=== PATIENT | female | born 2000 | race Hispanic/Latino ===

== ENCOUNTER 2023-04-01 06:18 | Day surgery (SDC) | payer OTHER ==
[2023-03-30 10:57] VITALS: BP 126/66; PULSE 71; RESP 18
[2023-04-01] VITALS (17 sets, daily range): BP systolic 12–139; BP diastolic 55–89; PULSE 62–101; RESP 14–19
[~2023-04-01] VITALS: Ht 165.1 cm; Wt 97.9 kg
[~2023-04-01 06:18] MED LIST: CAFF200T4 PO; MEDERMA TP
[2023-04-01] MEDS ORDERED: LACTATED RINGERS 1000ML 1,000 ML IV ONE (06:44)
[2023-04-01] MEDS ORDERED: DEXAMETHASONE SOD PHOSPHATE 10MG/ML 1ML VIAL ONE (07:09)
[2023-04-01] MEDS ORDERED: NEOSTIGMINE 5MG/5ML SYR IV ONE (07:09)
[2023-04-01] MEDS ORDERED: ONDANSETRON 4MG INJ ONE ×2 (07:09→08:43)
[2023-04-01] MEDS ORDERED: PROPOFOL 10 MG/ML 20ML VIAL IV ONE (07:09)
[2023-04-01] MEDS ORDERED: SUCCINYLCHOLINE 200MG/10ML SYR ONE (07:09)
[2023-04-01] MEDS ORDERED: GLYCOPYRROLATE 1 MG/5 ML SYRINGE ONE (07:09)
[2023-04-01] MEDS ORDERED: MIDAZOLAM HCL 1 MG/ML 2ML VIAL ONE (07:09)
[2023-04-01] MEDS ORDERED: LIDOCAINE PF 100MG/5ML (2%) SYRINGE 5ML ONE (07:09)
[2023-04-01] MEDS ORDERED: FENTANYL CITRATE PF 50 MCG/1 ML 2ML VIAL ONE ×2 (07:10→07:46)
[2023-04-01] MEDS ORDERED: ROCURONIUM 10MG/1ML SYR 10 MG/ML ML ONE (07:10)
[2023-04-01] MEDS ORDERED: LIDOCAINE 1%-EPI 1:100,000 20 ML VIAL IJ ONE ×2 (07:14→08:00)
[2023-04-01] MEDS ORDERED: EPINEPHRINE PF 1MG (1:1,000) 1 MG/ML AMP ONE (07:14)
[2023-04-01] MEDS ORDERED: ESMOLOL HCL 10 MG/ML 10 ML VIAL ONE (07:58)
[2023-04-01] MEDS ORDERED: MEPERIDINE-PF 25 MG/ML SYG ONE (08:44)
== END 2023-04-01 09:50 | disposition home or self-care (01) ==
LOC: DAH 06:18
PROVIDERS: ATTEND Otolaryngology
DX: J35.01 Chronic tonsillitis (principal); E66.9 Obesity, unspecified
CPT/HCPCS: 81025; 42826; 88304; A6260; A4663; J7120 ×2; J3010 ×2; J3490 ×4; J0330; J1100; J2710; J2001; J2250; J2704; J2405 ×2; J2175; A4930; A4215; A4223; A4222; A4221; A4600; J0171